=== PATIENT | male | born 1950 | race African-American/Black ===

== ENCOUNTER 2016-12-04 10:14 | Emergency (ER) | payer MEDICARE, MEDICAID ==
[~2016-12-04] VITALS: Ht 180.3 cm; Wt 90.0 kg
[~2016-12-04 10:14] MED LIST: ALBU05 NEB; AMLO10TA80 PO; LISI40TA4 PO; MOME13HF2 INH
[2016-12-04] MEDS ORDERED: SODIUM CHLORIDE 0.9% 500 ML IV ONE (11:02)
[2016-12-04] MEDS ORDERED: ASPIRIN 325MG EC TABLET PO ONE (11:15)
[2016-12-04 11:30] LABS: BASOPHILS % 0.9 % (0.0-2.0); EOSINOPHILS % 1.3 % (0.0-5.0); HEMATOCRIT. 29.8 % (42.0-52.0); HEMOGLOBIN. 10.1 g/dL (14.0-18.0); MEAN CORPUSCULAR HEMOGLOBIN 28.4 pg (28.0-32.0); MEAN CORPUSCULAR VOLUME 83.9 fL (80.0-94.0); MEAN PLATELET VOLUME 7.3 fl (7.4-10.4); MONOCYTES % 10.5 % (2.0-8.0); NEUTROPHILS % 73.3 % (40.0-76.0); PLATELET 103 x1000/uL (130-400); RED BLOOD CELL COUNT 3.55 mill/uL (4.7-6.1); RED CELL DISTRIBUTION WIDTH 16.7 % (11.6-14.6)
[2016-12-04 11:36] LABS: PROTHROMBIN TIME 10.3 sec
[2016-12-04 11:47] LABS: CARBON DIOXIDE 25 mEq/L (21-32); CHLORIDE 107 mEq/L (98-107); TROPONIN I 0.19 ng/mL (0.00-0.04)
[2016-12-04 12:02] LABS: CLARITY URINE CLEAR (CLEAR); COLOR URINE YELLOW (YELLOW); GLUCOSE URINE NEGATIVE (NEGATIVE); KETONES URINE NEGATIVE (NEGATIVE); LEUKOCYTE ESTERASE URINE NEGATIVE (NEGATIVE); NITRITE URINE NEGATIVE (NEGATIVE); OCCULT BLOOD URINE 2+ (NEGATIVE); PROTEIN URINE 3+ (NEGATIVE); SPECIFIC GRAVITY URINE 1.014 (1.005-1.030)
[2016-12-04 15:00] VITALS: BP 164/98
== END 2016-12-04 15:20 | disposition left against medical advice (07) ==
LOC: ER 10:34
DX: N18.9 Chronic kidney disease, unspecified (principal); F15.10 Other stimulant abuse, uncomplicated; I21.4 Non-ST elevation (NSTEMI) myocardial infarction; I12.9 Hypertensive chronic kidney disease with stage 1 through stage 4 chronic kidney disease, or unspecified chronic kidney disease; J44.9 Chronic obstructive pulmonary disease, unspecified; I25.2 Old myocardial infarction; Z79.82 Long term (current) use of aspirin; F14.10 Cocaine abuse, uncomplicated; F12.10 Cannabis abuse, uncomplicated
CPT/HCPCS: 36415; 71010; 80053; 81001; 82962; 84484; 85025; 85610; 93005; 96360; 99285; J7030

== ENCOUNTER 2017-01-08 22:27 | Emergency (ER) | payer MEDICARE, MEDICAID ==
[~2017-01-08] VITALS: Ht 175.3 cm; Wt 84.0 kg
[2017-01-09 02:40] LABS: EOSINOPHILS % 3.7 % (0.0-5.0); HEMATOCRIT. 29.2 % (42.0-52.0); HEMOGLOBIN. 9.6 g/dL (14.0-18.0); LYMPHOCYTES % 17.9 % (20.0-50.0); MEAN CORPUSCULAR HEMOGLOBIN 28.2 pg (28.0-32.0); MEAN CORPUSCULAR VOLUME 85.4 fL (80.0-94.0); MEAN PLATELET VOLUME 7.8 fl (7.4-10.4); MONOCYTES % 10.9 % (2.0-8.0); NEUTROPHILS % 66.5 % (40.0-76.0); PLATELET 123 x1000/uL (130-400); RED BLOOD CELL COUNT 3.42 mill/uL (4.7-6.1); RED CELL DISTRIBUTION WIDTH 16.9 % (11.6-14.6)
[2017-01-09 02:56] LABS: CARBON DIOXIDE 22 mEq/L (21-32); CHLORIDE 116 mEq/L (98-107)
[2017-01-09] MEDS ORDERED: AMLODIPINE 10MG TABLET PO ONE (05:15)
[2017-01-09 05:26] VITALS: BP 217/189
== END 2017-01-09 06:08 | disposition home or self-care (01) ==
LOC: ER 22:27
DX: R06.02 Shortness of breath (principal); I11.0 Hypertensive heart disease with heart failure; I50.9 Heart failure, unspecified; R60.0 Localized edema; F17.200 Nicotine dependence, unspecified, uncomplicated; J44.9 Chronic obstructive pulmonary disease, unspecified; R11.2 Nausea with vomiting, unspecified; F14.10 Cocaine abuse, uncomplicated; F12.10 Cannabis abuse, uncomplicated; F15.10 Other stimulant abuse, uncomplicated; Z87.440 Personal history of urinary (tract) infections
CPT/HCPCS: 36415; 71010; 80053; 83880; 84484; 85025; 93005; 99285

== ENCOUNTER 2017-01-18 22:43 | Emergency (ER) | payer MEDICARE, MEDICAID ==
[~2017-01-18] VITALS: Ht 165.1 cm; Wt 82.0 kg
[2017-01-19 02:03] LABS: CLARITY URINE CLOUDY (CLEAR); COLOR URINE YELLOW (YELLOW); GLUCOSE URINE NEGATIVE (NEGATIVE); KETONES URINE NEGATIVE (NEGATIVE); LEUKOCYTE ESTERASE URINE 2+ (NEGATIVE); NITRITE URINE NEGATIVE (NEGATIVE); OCCULT BLOOD URINE 2+ (NEGATIVE); PROTEIN URINE 3+ (NEGATIVE); SPECIFIC GRAVITY URINE 1.016 (1.005-1.030)
[2017-01-19] MEDS ORDERED: MORPHINE SULFATE 10 MG/ML CPJ IM ONE (03:30)
[2017-01-19] MEDS ORDERED: CEPHALEXIN 500MG CAPSULE PO ONE (03:30)
[2017-01-19 07:28] VITALS: BP 145/77
== END 2017-01-19 07:31 | disposition home or self-care (01) ==
LOC: ER 22:43
DX: N30.00 Acute cystitis without hematuria (principal); F12.90 Cannabis use, unspecified, uncomplicated; F15.10 Other stimulant abuse, uncomplicated; F14.10 Cocaine abuse, uncomplicated; I13.0 Hypertensive heart and chronic kidney disease with heart failure and stage 1 through stage 4 chronic kidney disease, or unspecified chronic kidney disease; I50.9 Heart failure, unspecified; I25.2 Old myocardial infarction; N18.9 Chronic kidney disease, unspecified; J44.9 Chronic obstructive pulmonary disease, unspecified; K76.9 Liver disease, unspecified; Z79.899 Other long term (current) drug therapy
CPT/HCPCS: 51702; 81001; 96372; 99284; J2270; A4315

== ENCOUNTER 2017-01-23 09:43 | Inpatient (IN) | payer MEDICARE, MEDICAID ==
[~2017-01-23] VITALS: Ht 175.3 cm; Wt 98.0 kg
[2017-01-23] MEDS ORDERED: METHYLPREDNISOLONE SOD SUCC 125 MG/2 ML VIAL IV STA (10:10)
[2017-01-23] MEDS ORDERED: FUROSEMIDE 40MG/4ML VIAL IV STA (10:10)
[2017-01-23] MEDS ORDERED: ALBUTEROL (0.083%) 2.5MG/3ML NEB HHN STA (10:10)
[2017-01-23] MEDS ORDERED: ASPIRIN 81MG TABLET PO STA (10:10)
[2017-01-23] MEDS ORDERED: IPRATROPIUM BROMIDE (0.02%) 0.5MG/2.5ML NEB HHN STA (10:10)
[2017-01-23] MEDS ORDERED: NITROGLYCERIN OINT 1GM/INCH UDPKT TD STA (10:10)
[2017-01-23 10:20] LABS: BASOPHILS % 0.7 % (0.0-2.0); EOSINOPHILS % 3.1 % (0.0-5.0); HEMATOCRIT. 30.5 % (42.0-52.0); HEMOGLOBIN. 10.1 g/dL (14.0-18.0); LYMPHOCYTES % 13.6 % (20.0-50.0); MEAN CORPUSCULAR HEMOGLOBIN 28.1 pg (28.0-32.0); MEAN CORPUSCULAR VOLUME 84.7 fL (80.0-94.0); MEAN PLATELET VOLUME 7.6 fl (7.4-10.4); MONOCYTES % 9.4 % (2.0-8.0); NEUTROPHILS % 73.2 % (40.0-76.0); PLATELET 151 x1000/uL (130-400); RED BLOOD CELL COUNT 3.61 mill/uL (4.7-6.1); RED CELL DISTRIBUTION WIDTH 16.3 % (11.6-14.6)
[2017-01-23] MEDS ORDERED: IPRATROPIUM BROMIDE (0.02%) 0.5MG/2.5ML NEB ONE (10:31)
[2017-01-23] MEDS ORDERED: ALBUTEROL (0.5%) 2.5MG/0.5ML NEB HHN ONE (10:31)
[2017-01-23] MEDS ORDERED: CLONIDINE 0.2MG TABLET PO ONE (11:45)
[2017-01-23 12:06] LABS: CHLORIDE 111 mEq/L (98-107)
[2017-01-23 12:10] LABS: CARBON DIOXIDE 22 mEq/L (21-32)
[2017-01-23 12:15] LABS: TROPONIN I 0.16 ng/mL (0.00-0.04)
[2017-01-23] MEDS ORDERED: CLONIDINE 0.1MG TABLET PO PRN (12:45)
[2017-01-23] MEDS ORDERED: MAGNESIUM/ALUMINUM HYDROXIDE/SIMETHICONE 30ML UDC PO PRN (12:45)
[2017-01-23] MEDS ORDERED: GUAIFENESIN 200MG/10ML SUGAR FREE UDC PO PRN (12:45)
[2017-01-23] MEDS ORDERED: HYDRALAZINE 20MG/ML VIAL IV ONE ×2 (12:45→14:15)
[2017-01-23] MEDS ORDERED: DIPHENHYDRAMINE 50MG/ML VIAL IV PRN (12:45)
[2017-01-23] MEDS ORDERED: DOCUSATE SODIUM 100MG CAPSULE PO PRN (12:45)
[2017-01-23] MEDS ORDERED: NITROGLYCERIN 0.4MG TABLET SL SL PRN (12:45)
[2017-01-23] MEDS ORDERED: ACETAMINOPHEN 325MG TABLET PO PRN (12:45)
[2017-01-23] MEDS ORDERED: IPRATROPIUM/ALBUTEROL 0.5-3(2.5)MG/3ML NEB INH PRN (12:45)
[2017-01-23 13:25] LABS: *AMPHETAMINES SCREEN URINE PRESUMTIVE POSITIVE (NEGATIVE); *BARBITURATES SCREEN URINE NEGATIVE (NEGATIVE); *BENZODIAZEPINES SCREEN URINE NEGATIVE (NEGATIVE); *COCAINE SCREEN URINE NEGATIVE (NEGATIVE); CANNABINOID URINE SCREEN NEGATIVE (NEGATIVE); METHADONE URINE SCREEN NEGATIVE (NEGATIVE); OPIATES URINE SCREEN PRESUMTIVE POSITIVE (NEGATIVE); PHENCYCLIDINE URINE SCREEN NEGATIVE (NEGATIVE)
[2017-01-23 15:37] VITALS: BP 166/89
[2017-01-23 15:40] VITALS: BP 166/89
[2017-01-23] MEDS ORDERED: ENOXAPARIN 40MG/0.4ML SYR SUBCUT SCH (18:00)
[2017-01-23] MEDS: FAMOTIDINE 20MG/2ML VIAL IV SCH (18:37)
[2017-01-23 20:01] VITALS: BP 182/101
[2017-01-23] MEDS ORDERED: ZOLPIDEM TARTRATE 5MG TABLET PO PRN (20:30)
[2017-01-23 20:43] LABS: CREATINE KINASE MB FRACTION 5.8 ng/mL (0.5-3.6); TROPONIN I 0.25 ng/mL (0.00-0.04)
[2017-01-23] MEDS: LISINOPRIL 20MG TABLET PO SCH (20:57)
[2017-01-23] MEDS: HYDRALAZINE HCL 50MG TABLET PO SCH (20:57)
[2017-01-23] MEDS: METOPROLOL TARTRATE 25MG TABLET PO SCH (20:57)
[2017-01-23] MEDS ORDERED: FAMOTIDINE 20MG/2ML VIAL IV SCH (21:00)
[2017-01-23] MEDS: FUROSEMIDE 40MG/4ML VIAL IVP SCH (21:27)
[2017-01-23 23:47] LABS: CLARITY URINE CLEAR (CLEAR); COLOR URINE YELLOW (YELLOW); GLUCOSE URINE NEGATIVE (NEGATIVE); KETONES URINE NEGATIVE (NEGATIVE); LEUKOCYTE ESTERASE URINE 1+ (NEGATIVE); NITRITE URINE NEGATIVE (NEGATIVE); OCCULT BLOOD URINE NEGATIVE (NEGATIVE); PROTEIN URINE 2+ (NEGATIVE); SPECIFIC GRAVITY URINE 1.013 (1.005-1.030); UROBILINOGEN URINE 0.2 E.U./dL (0.2-1.0)
[2017-01-24] VITALS: BP 153/75
[2017-01-24 03:46] LABS: TROPONIN I 0.23 ng/mL (0.00-0.04)
[2017-01-24 04:00] VITALS: BP 151/74
[2017-01-24] MEDS: HYDRALAZINE HCL 50MG TABLET PO SCH ×3 (06:41→21:07)
[2017-01-24 08:00] VITALS: BP 150/88
[2017-01-24 08:36] LABS: BASOPHILS % 0.3 % (0.0-2.0); EOSINOPHILS % 0.1 % (0.0-5.0); HEMATOCRIT. 27.5 % (42.0-52.0); HEMOGLOBIN. 9.1 g/dL (14.0-18.0); LYMPHOCYTES % 10.2 % (20.0-50.0); MEAN CORPUSCULAR HEMOGLOBIN 28.1 pg (28.0-32.0); MEAN CORPUSCULAR VOLUME 84.8 fL (80.0-94.0); MONOCYTES % 8.3 % (2.0-8.0); NEUTROPHILS % 81.1 % (40.0-76.0); RED BLOOD CELL COUNT 3.25 mill/uL (4.7-6.1); RED CELL DISTRIBUTION WIDTH 16.1 % (11.6-14.6)
[2017-01-24 08:42] LABS: CHLORIDE 109 mEq/L (98-107)
[2017-01-24 08:50] LABS: CARBON DIOXIDE 17 mEq/L (21-32); PHOSPHORUS 4.7 mg/dL (2.5-4.9)
[2017-01-24] MEDS: FAMOTIDINE 20MG/2ML VIAL IV SCH (09:00)
[2017-01-24] MEDS: ASPIRIN 325MG EC TABLET PO SCH (09:00)
[2017-01-24] MEDS ORDERED: AMLODIPINE 10MG TABLET PO SCH (09:00)
[2017-01-24] MEDS ORDERED: FOLIC ACID/VITAMIN B COMP W-C TABLET PO SCH (09:00)
[2017-01-24] MEDS: FUROSEMIDE 40MG/4ML VIAL IVP SCH ×2 (09:00→21:01)
[2017-01-24] MEDS: METOPROLOL TARTRATE 25MG TABLET PO SCH ×2 (09:01→21:07)
[2017-01-24] MEDS: LISINOPRIL 20MG TABLET PO SCH (09:01)
[2017-01-24] MEDS ORDERED: NIFEDIPINE XL 60MG TAB PO SCH (10:00)
[2017-01-24 10:19] LABS: MEAN PLATELET VOLUME 8.3 fl (7.4-10.4); PLATELET 131 x1000/uL (130-400)
[2017-01-24 12:00] VITALS: BP 138/80
[2017-01-24 12:54] LABS: BG BASE EXCESS -5.1 mmol/L (-2.0-2.0); BG CARBOXYHEMOGLOBIN 0.1 % (0.5-1.5); BG DEOXYHEMOGLOBIN 2.7 % (0.0-5.0); BG FRACTION INSPIRED OXYGEN 21; BG HCO3 ACT 19.2 mmol/L (22.0-26.0); BG METHEMOGLOBIN 0.3 % (0.0-1.5); BG OXYGEN SATURATION 97.3 % (92.0-98.5); BG OXYHEMOGLOBIN 96.9 % (94.0-97.0); BG PCO2 32.7 mmHg (35.0-45.0); BG PH 7.386 (7.350-7.450); BG PO2 97.8 mmHg (75.0-100.0); BG SAMPLE SITE RIGHT BRACHIAL; BG TOTAL HEMOGLOBIN 10.1 g/dL (12.0-18.0); BG VENT MODE ROOM AIR
[2017-01-24 16:12] VITALS: BP 137/65
[2017-01-24] MEDS: ENOXAPARIN 30MG/0.3ML SYR SUBCUT SCH (17:52)
[2017-01-24 20:00] VITALS: BP 133/63
[2017-01-24] MEDS: NIFEDIPINE XL 60MG TAB PO SCH (21:07)
[2017-01-25] VITALS: BP 130/65
[2017-01-25] MEDS: LISINOPRIL 20MG TABLET PO SCH ×3 (00:36→21:31)
[2017-01-25 04:00] VITALS: BP 141/73
[2017-01-25] MEDS: HYDRALAZINE HCL 50MG TABLET PO SCH ×3 (06:29→21:31)
[2017-01-25 06:47] LABS: BASOPHILS % 0.8 % (0.0-2.0); EOSINOPHILS % 2.5 % (0.0-5.0); HEMATOCRIT. 28.8 % (42.0-52.0); HEMOGLOBIN. 9.6 g/dL (14.0-18.0); LYMPHOCYTES % 24.6 % (20.0-50.0); MEAN CORPUSCULAR HEMOGLOBIN 27.9 pg (28.0-32.0); MEAN CORPUSCULAR VOLUME 83.2 fL (80.0-94.0); MEAN PLATELET VOLUME 8.2 fl (7.4-10.4); MONOCYTES % 10.8 % (2.0-8.0); NEUTROPHILS % 61.3 % (40.0-76.0); PLATELET 181 x1000/uL (130-400); RED BLOOD CELL COUNT 3.46 mill/uL (4.7-6.1)
[2017-01-25 08:00] VITALS: BP 128/56
[2017-01-25] MEDS: TRAMADOL 50MG TABLET PO PRN (09:19)
[2017-01-25] MEDS: FAMOTIDINE 20MG/2ML VIAL IV SCH (10:34)
[2017-01-25] MEDS: ASPIRIN 325MG EC TABLET PO SCH (10:35)
[2017-01-25] MEDS: NIFEDIPINE XL 60MG TAB PO SCH ×2 (10:36→21:30)
[2017-01-25] MEDS: METOPROLOL TARTRATE 25MG TABLET PO SCH ×2 (10:36→21:31)
[2017-01-25] MEDS: FUROSEMIDE 40MG/4ML VIAL IVP SCH ×2 (10:37→21:31)
[2017-01-25 12:00] VITALS: BP 131/70
[2017-01-25 16:00] VITALS: BP 110/53
[2017-01-25] MEDS: ENOXAPARIN 30MG/0.3ML SYR SUBCUT SCH (17:38)
[2017-01-25 20:13] VITALS: BP_SYST 131; BP_SYST 133; BP_DIAS 79; BP_DIAS 85
[2017-01-26] VITALS (7 sets, daily range): BP systolic 115–139; BP diastolic 61–83
[2017-01-26] MEDS: HYDRALAZINE HCL 50MG TABLET PO SCH ×3 (05:57→21:26)
[2017-01-26 07:12] LABS: EOSINOPHILS % 2.8 % (0.0-5.0); HEMATOCRIT. 32.5 % (42.0-52.0); LYMPHOCYTES % 20.8 % (20.0-50.0); MEAN CORPUSCULAR HEMOGLOBIN 27.9 pg (28.0-32.0); MEAN CORPUSCULAR VOLUME 82.7 fL (80.0-94.0); MEAN PLATELET VOLUME 7.9 fl (7.4-10.4); MONOCYTES % 12.9 % (2.0-8.0); NEUTROPHILS % 62.5 % (40.0-76.0); PLATELET 212 x1000/uL (130-400); RED BLOOD CELL COUNT 3.93 mill/uL (4.7-6.1); RED CELL DISTRIBUTION WIDTH 15.9 % (11.6-14.6)
[2017-01-26 09:16] LABS: PHOSPHORUS 3.6 mg/dL (2.5-4.9)
[2017-01-26] MEDS: FUROSEMIDE 40MG/4ML VIAL IVP SCH ×2 (11:12→21:26)
[2017-01-26] MEDS: FAMOTIDINE 20MG/2ML VIAL IV SCH (11:12)
[2017-01-26] MEDS: NIFEDIPINE XL 60MG TAB PO SCH ×2 (11:28→21:26)
[2017-01-26] MEDS: ONDANSETRON HCL 4MG/2ML VIAL IV PRN (11:35)
[2017-01-26] MEDS: ASPIRIN 325MG EC TABLET PO SCH (11:35)
[2017-01-26] MEDS: METOPROLOL TARTRATE 25MG TABLET PO SCH ×2 (11:36→21:26)
[2017-01-26] MEDS: LISINOPRIL 20MG TABLET PO SCH ×2 (11:36→21:26)
[2017-01-26] MEDS: TRAMADOL 50MG TABLET PO PRN (14:26)
[2017-01-26] MEDS: LORAZEPAM 2MG/ML CPJ IV PRN ×2 (15:16→19:17)
[2017-01-26] MEDS: ENOXAPARIN 30MG/0.3ML SYR SUBCUT SCH (18:44)
[2017-01-27] VITALS: BP 138/76
[2017-01-27 04:00] VITALS: BP 125/74
[2017-01-27] MEDS: HYDRALAZINE HCL 50MG TABLET PO SCH ×2 (05:57→15:03)
[2017-01-27 06:46] LABS: HEMATOCRIT. 31.3 % (42.0-52.0); HEMOGLOBIN. 10.5 g/dL (14.0-18.0); MEAN PLATELET VOLUME 8.3 fl (7.4-10.4); PLATELET 218 x1000/uL (130-400); RED BLOOD CELL COUNT 3.77 mill/uL (4.7-6.1); RED CELL DISTRIBUTION WIDTH 15.5 % (11.6-14.6)
[2017-01-27 07:12] LABS: CARBON DIOXIDE 24 mEq/L (21-32); CHLORIDE 102 mEq/L (98-107); PHOSPHORUS 3.8 mg/dL (2.5-4.9)
[2017-01-27 08:00] VITALS: BP 107/74
[2017-01-27] MEDS: NIFEDIPINE XL 60MG TAB PO SCH (09:00)
[2017-01-27] MEDS: METOPROLOL TARTRATE 25MG TABLET PO SCH (09:00)
[2017-01-27] MEDS: ASPIRIN 325MG EC TABLET PO SCH (09:00)
[2017-01-27] MEDS: LISINOPRIL 20MG TABLET PO SCH (09:00)
[2017-01-27 09:11] LABS: ALBUMIN 2.7 g/dL (2.9-4.4); ALPHA-1-GLOBULIN 0.3 g/dL (0.0-0.4); ALPHA-2-GLOBULIN 0.5 g/dL (0.4-1.0); BETA GLOBULIN 0.8 g/dL (0.7-1.3); GAMMA GLOBULINS 1.1 g/dL (0.4-1.8); GLOBULIN TOTAL 2.7 g/dL (2.2-3.9); M-SPIKE Not Observed g/dL (Not Observed); TOTAL PROTEIN SERUM 5.4 g/dL (6.0-8.5)
[2017-01-27] MEDS: FAMOTIDINE 20MG/2ML VIAL IV SCH (09:38)
[2017-01-27] MEDS: FUROSEMIDE 40MG/4ML VIAL IVP SCH (09:38)
[2017-01-27] MEDS: ONDANSETRON HCL 4MG/2ML VIAL IV PRN (11:29)
[2017-01-27 12:00] VITALS: BP 130/67
[2017-01-27 15:15] VITALS: BP 130/67
[2017-01-27 16:34] LABS: PLATELET ESTIMATE NORMAL
[2017-01-29 13:12] LABS: ALBUMIN URINE 57.9 % (.); ALPHA-1-GLOBULIN URINE 1.1 % (.); ALPHA-2-GLOBULIN URINE 6.9 % (.); BETA GLOBULIN URINE 14.2 % (.); GAMMA GLOBULIN URINE 19.9 % (.); TOTAL PROTEIN RANDOM URINE 229.2 mg/dL (Not Estab.)
== END 2017-01-27 16:14 | disposition home or self-care (01) | DRG 194 ==
LOC: ER 09:50 → ENRESERV 12:17 → 7WST 12:41 → SUPCPDRO 12:41 → EDBEDREQ 12:44 → EDBEDREQTM 12:44
PROVIDERS: ADMIT Internal Medicine; ATTEND Internal Medicine
DX: I13.2 Hypertensive heart and chronic kidney disease with heart failure and with stage 5 chronic kidney disease, or end stage renal disease (principal); J96.91 Respiratory failure, unspecified with hypoxia; E43 Unspecified severe protein-calorie malnutrition; N17.9 Acute kidney failure, unspecified; I50.43 Acute on chronic combined systolic (congestive) and diastolic (congestive) heart failure; J44.1 Chronic obstructive pulmonary disease with (acute) exacerbation; F15.10 Other stimulant abuse, uncomplicated; F19.10 Other psychoactive substance abuse, uncomplicated; F17.210 Nicotine dependence, cigarettes, uncomplicated; D63.8 Anemia in other chronic diseases classified elsewhere; N18.5 Chronic kidney disease, stage 5; Z59.0 Homelessness; Z79.899 Other long term (current) drug therapy; Z82.49 Family history of ischemic heart disease and other diseases of the circulatory system; Z91.14 Patient's other noncompliance with medication regimen; Z68.31 Body mass index [BMI] 31.0-31.9, adult
CPT/HCPCS: 36415; 36600; 71010; 76770; 80048; 80053; 80061; 80305; 81001; 82375; 82550; 82553; 82570; 82805; 82962; 83036; 83735; 83880; 84100; 84155; 84156; 84165; 84166; 84484; 84540; 85025; 85610; 85730; 87086; 87186; 93005; 93306; 93970; 94640; 96374; 96375; 97116; 97162; 99285; J0360; J1200; J1650; J1940; J2060; J2405; J2930; J3490; J7611

== ENCOUNTER 2018-05-06 09:02 | Inpatient (IN) | payer MEDICARE, MEDICAID ==
[~2018-05-06] VITALS: Ht 175.3 cm; Wt 97.5 kg
[~2018-05-06 09:02] MED LIST changes: -ALBU05 NEB; +BACL20TA PO; +CARV25TA47 PO; +CLON-457 PO; +FLUT1DIS3 INH; +GABA-529 PO; +MINO10TA PO; -MOME13HF2 INH; +NEPVIT PO
[2018-05-06] MEDS ORDERED: IPRATROPIUM BROMIDE (0.02%) 0.5MG/2.5ML NEB HHN STA (09:12)
[2018-05-06] MEDS ORDERED: MAGNESIUM 2 G PREMIX 50 ML IV STA (09:12)
[2018-05-06] MEDS ORDERED: ALBUTEROL (0.083%) 2.5MG/3ML NEB HHN STA (09:12)
[2018-05-06] MEDS ORDERED: METHYLPREDNISOLONE SOD SUCC 125 MG/2 ML VIAL IV STA (09:12)
[2018-05-06 09:54] LABS: EOSINOPHILS % 3.1 % (0.0-5.0); HEMATOCRIT. 36.3 % (42.0-52.0); HEMOGLOBIN. 12.1 g/dL (14.0-18.0); LYMPHOCYTES % 15.3 % (20.0-50.0); MEAN CORPUSCULAR HEMOGLOBIN 30.2 pg (28.0-32.0); MEAN CORPUSCULAR VOLUME 90.7 fL (80.0-94.0); MEAN PLATELET VOLUME 7.8 fl (7.4-10.4); MONOCYTES % 7.3 % (2.0-8.0); NEUTROPHILS % 73.3 % (40.0-76.0); PLATELET 134 x1000/uL (130-400)
[2018-05-06 09:58] LABS: CHLORIDE 112 mEq/L (98-107)
[2018-05-06] MEDS ORDERED: IPRATROPIUM/ALBUTEROL 0.5-3(2.5)MG/3ML NEB ONE (10:07)
[2018-05-06] MEDS ORDERED: FUROSEMIDE 100MG/10ML VIAL IV STA (10:21)
[2018-05-06] MEDS ORDERED: ALBUTEROL (0.083%) 2.5MG/3ML NEB HHN ONE (10:30)
[2018-05-06] MEDS ORDERED: INSULIN REGULAR (HUMULIN R) 300UNITS/3ML IV ONE (10:30)
[2018-05-06] MEDS ORDERED: SODIUM BICARBONATE 8.4% 1 MEQ/ML 50ML SYR IV ONE (10:30)
[2018-05-06] MEDS ORDERED: DEXTROSE 50% WATER 50ML SYRINGE IV ONE (10:30)
[2018-05-06] MEDS ORDERED: CLONIDINE 0.1MG TABLET PO ONE (11:15)
[2018-05-06] MEDS ORDERED: ACETAMINOPHEN 325MG TABLET PO PRN (14:00)
[2018-05-06] MEDS ORDERED: HYDROCODONE/ACETAMINOPHEN 5/325MG TABLET PO PRN (14:00)
[2018-05-06] MEDS ORDERED: ONDANSETRON HCL 4MG/2ML INJ IV PRN (14:00)
[2018-05-06] MEDS ORDERED: DOCUSATE SODIUM 100MG CAPSULE PO PRN (14:00)
[2018-05-06] MEDS ORDERED: HYDROMORPHONE HCL/PF 2MG/ML CPJ IV PRN (14:00)
[2018-05-06] MEDS ORDERED: GUAIFENESIN 200MG/10ML SUGAR FREE UDC PO PRN (14:00)
[2018-05-06] MEDS ORDERED: DIPHENHYDRAMINE 50MG/ML VIAL IV PRN (14:00)
[2018-05-06 16:00] VITALS: BP 138/87
[2018-05-06] MEDS: AMLODIPINE 10MG TABLET PO SCH (16:22)
[2018-05-06 16:28] VITALS: BP 139/87
[2018-05-06 20:00] VITALS: BP 178/83
[2018-05-06] MEDS: IPRATROPIUM/ALBUTEROL 0.5-3(2.5)MG/3ML NEB INH PRN (21:01)
[2018-05-07] VITALS: BP 132/77
[2018-05-07] MEDS: IPRATROPIUM/ALBUTEROL 0.5-3(2.5)MG/3ML NEB INH PRN ×2 (01:20→11:10)
[2018-05-07 04:00] VITALS: BP 186/91
[2018-05-07] MEDS: CLONIDINE 0.1MG TABLET PO PRN ×2 (04:12→20:33)
[2018-05-07] MEDS ORDERED: SODIUM CHLORIDE 0.9% IV ONE (07:30)
[2018-05-07] MEDS ORDERED: DESMOPRESSIN ACETATE IV ONE (07:30)
[2018-05-07 08:00] VITALS: BP 144/75
[2018-05-07] MEDS: AMLODIPINE 10MG TABLET PO SCH (08:24)
[2018-05-07] MEDS ORDERED: BACLOFEN 20MG TABLET PO PRN (09:30)
[2018-05-07 09:35] LABS: HEMATOCRIT. 33.1 % (42.0-52.0); HEMOGLOBIN. 11.2 g/dL (14.0-18.0); MEAN CORPUSCULAR VOLUME 91.1 fL (80.0-94.0); PLATELET 139 x1000/uL (130-400); RED BLOOD CELL COUNT 3.63 mill/uL (4.7-6.1); RED CELL DISTRIBUTION WIDTH 19.6 % (11.6-14.6)
[2018-05-07 09:58] LABS: CHLORIDE 109 mEq/L (98-107)
[2018-05-07 12:00] VITALS: BP 136/60
[2018-05-07 12:58] LABS: PLATELET ESTIMATE NORMAL
[2018-05-07] MEDS: IPRATROPIUM/ALBUTEROL 0.5-3(2.5)MG/3ML NEB HHN SCH ×2 (15:08→20:42)
[2018-05-07] MEDS: BUDESONIDE 0.5MG/2ML NEB HHN SCH ×2 (15:08→20:42)
[2018-05-07] MEDS: FOLIC ACID/VITAMIN B COMP W-C TABLET PO SCH (17:06)
[2018-05-07] MEDS: CARVEDILOL 25MG TABLET PO SCH (17:06)
[2018-05-07] MEDS: NICOTINE 21MG PATCH TD SCH (17:06)
[2018-05-07 20:00] VITALS: BP 160/63
[2018-05-07] MEDS: GABAPENTIN 100MG CAPSULE PO SCH (20:33)
[2018-05-08] VITALS: BP 148/67
[2018-05-08] MEDS: IPRATROPIUM/ALBUTEROL 0.5-3(2.5)MG/3ML NEB HHN SCH ×3 (02:07→13:15)
[2018-05-08 04:00] VITALS: BP 158/82
[2018-05-08 06:19] LABS: BASOPHILS % 0.8 % (0.0-2.0); EOSINOPHILS % 1.5 % (0.0-5.0); HEMOGLOBIN. 9.9 g/dL (14.0-18.0); LYMPHOCYTES % 19.8 % (20.0-50.0); MEAN CORPUSCULAR VOLUME 90.6 fL (80.0-94.0); MONOCYTES % 11.2 % (2.0-8.0); NEUTROPHILS % 66.7 % (40.0-76.0); PLATELET 114 x1000/uL (130-400); RED CELL DISTRIBUTION WIDTH 19.9 % (11.6-14.6)
[2018-05-08] MEDS: BUDESONIDE 0.5MG/2ML NEB HHN SCH (07:23)
[2018-05-08 08:00] VITALS: BP 155/70
[2018-05-08] MEDS: CARVEDILOL 25MG TABLET PO SCH ×3 (08:10→17:34)
[2018-05-08] MEDS: AMLODIPINE 10MG TABLET PO SCH ×2 (09:00→12:47)
[2018-05-08] MEDS: NICOTINE 21MG PATCH TD SCH (09:00)
[2018-05-08] MEDS: FOLIC ACID/VITAMIN B COMP W-C TABLET PO SCH (09:00)
[2018-05-08 12:27] VITALS: BP 191/81
[2018-05-08 16:15] VITALS: BP 145/78
[2018-05-08] MEDS: CLONIDINE 0.1MG TABLET PO PRN (16:40)
[2018-05-08] MEDS: GABAPENTIN 100MG CAPSULE PO SCH (20:07)
[2018-05-08] MEDS ORDERED: EPOETIN ALFA 10000UNITS/ML VIAL SUBCUT SCH (21:00)
== END 2018-05-08 20:20 | disposition home or self-care (01) | DRG 133 ==
LOC: ER 09:02 → 7WST 11:25 → ENRESERV 14:29
PROVIDERS: ADMIT Hospitalist; ATTEND Hospitalist
PROC: 5A1D70Z Performance of Urinary Filtration, Intermittent, Less than 6 Hours Per Day (ICD-10-PCS; principal; 2018-05-06)
PROC: 5A1D70Z Performance of Urinary Filtration, Intermittent, Less than 6 Hours Per Day (ICD-10-PCS; 2018-05-08)
DX: J96.00 Acute respiratory failure, unspecified whether with hypoxia or hypercapnia (principal); I13.2 Hypertensive heart and chronic kidney disease with heart failure and with stage 5 chronic kidney disease, or end stage renal disease; N18.6 End stage renal disease; E87.5 Hyperkalemia; J44.9 Chronic obstructive pulmonary disease, unspecified; I50.33 Acute on chronic diastolic (congestive) heart failure; D63.1 Anemia in chronic kidney disease; Z99.2 Dependence on renal dialysis; F17.210 Nicotine dependence, cigarettes, uncomplicated; I25.10 Atherosclerotic heart disease of native coronary artery without angina pectoris; J98.11 Atelectasis; Z82.49 Family history of ischemic heart disease and other diseases of the circulatory system; Z86.73 Personal history of transient ischemic attack (TIA), and cerebral infarction without residual deficits; Z71.6 Tobacco abuse counseling; Z79.899 Other long term (current) drug therapy
CPT/HCPCS: 36415; 71045; 80048; 82962; 83880; 84484; 93005; 93306; 93970; 94640; 96374; 99285; J0885; J1815; J1940; J2597; J2930; J3475; J3490; J7611; J7620; J7626

== ENCOUNTER 2019-06-24 13:18 | Emergency (ER) | payer MEDICARE, MEDICAID ==
[~2019-06-24] VITALS: Ht 182.9 cm; Wt 100.0 kg
[~2019-06-24 13:18] MED LIST changes: -LISI40TA4 PO
[2019-06-24 14:50] LABS: CHLORIDE 103 mEq/L (98-107)
[2019-06-24 15:09] LABS: BASOPHILS % 1.2 % (0.0-2.0); EOSINOPHILS % 2.5 % (0.0-5.0); HEMATOCRIT. 36.7 % (42.0-52.0); HEMOGLOBIN. 12.6 g/dL (14.0-18.0); LYMPHOCYTES % 22.5 % (20.0-50.0); MEAN CORPUSCULAR HEMOGLOBIN 31.6 pg (28.0-32.0); MEAN CORPUSCULAR VOLUME 91.8 fL (80.0-94.0); MEAN PLATELET VOLUME 8.2 fl (7.4-10.4); MONOCYTES % 10.5 % (2.0-8.0); NEUTROPHILS % 63.3 % (40.0-76.0); PLATELET 145 x1000/uL (130-400); RED CELL DISTRIBUTION WIDTH 15.5 % (11.6-14.6)
[2019-06-24] MEDS ORDERED: IPRATROPIUM BROMIDE (0.02%) 0.5MG/2.5ML NEB HHN NR (15:14)
[2019-06-24] MEDS ORDERED: ALBUTEROL (0.083%) 2.5MG/3ML NEB HHN NR (15:14)
[2019-06-24 16:03] LABS: BG BASE EXCESS 5.5 mmol/L (-2.0-2.0); BG CARBOXYHEMOGLOBIN 2.7 % (0.5-1.5); BG DEOXYHEMOGLOBIN 2.1 % (0.0-5.0); BG FRACTION INSPIRED OXYGEN 48; BG HCO3 ACT 30.4 mmol/L (22.0-26.0); BG METHEMOGLOBIN 0.3 % (0.0-1.5); BG OXYGEN SATURATION 97.8 % (92.0-98.5); BG OXYHEMOGLOBIN 94.9 % (94.0-97.0); BG PCO2 45.2 mmHg (35.0-45.0); BG PH 7.445 (7.350-7.450); BG PO2 121.5 mmHg (75.0-100.0); BG SAMPLE SITE RIGHT BRACHIAL; BG TOTAL HEMOGLOBIN 12.6 g/dL (12.0-18.0)
[2019-06-24 17:27] VITALS: BP 130/73
== END 2019-06-24 18:01 | disposition home or self-care (01) ==
LOC: ER 13:26
DX: J44.1 Chronic obstructive pulmonary disease with (acute) exacerbation (principal); I11.0 Hypertensive heart disease with heart failure; I50.9 Heart failure, unspecified; F15.10 Other stimulant abuse, uncomplicated; Z86.73 Personal history of transient ischemic attack (TIA), and cerebral infarction without residual deficits
CPT/HCPCS: 36415; 36600; 71045; 80053; 80320; 82375; 82805; 83880; 84484; 85025; 93005; 94640; 99285; J7610; Z7610; G0480